=== PATIENT | female | born 1940 | race Caucasian/White ===

== ENCOUNTER 2022-06-11 07:10 | Day surgery (SDC) | payer MEDICARE ==
[2022-06-11] VITALS (22 sets, daily range): BP systolic 124–237; BP diastolic 34–90
[~2022-06-11] VITALS: Ht 152.4 cm; Wt 45.0 kg
[2022-06-11] MEDS ORDERED: normal saline 1000ml 1,000 ML IV PRN (07:35)
[2022-06-11] MEDS ORDERED: AMOX500C42 PO (07:42)
[2022-06-11] MEDS ORDERED: MELO-100 PO (07:42)
[2022-06-11] MEDS ORDERED: HYDR-3964 PO (07:42)
[2022-06-11] MEDS ORDERED: ATOR10TA70 PO (07:42)
[2022-06-11] MEDS ORDERED: GABA-530 PO (07:42)
[2022-06-11] MEDS ORDERED: DOCU-148 PO (07:42)
[2022-06-11] MEDS ORDERED: LACT1CAP65 PO (07:42)
[2022-06-11] MEDS ORDERED: TIZA-189 PO (07:42)
[2022-06-11] MEDS ORDERED: FLUT15.87 NAS (07:42)
[2022-06-11] MEDS ORDERED: ZOLP5TAB8 PO (07:42)
[2022-06-11] MEDS ORDERED: PANT40TA54 PO (07:42)
[2022-06-11] MEDS ORDERED: MSC30T PO (07:42)
[2022-06-11 08:24] LABS: BASOPHILS % (AUTO) 0.6 % (0-1); EOSINOPHILS # (AUTO) 0.3 X10'3 (0-0.9); EOSINOPHILS % (AUTO) 4.1 % (0-6); HEMATOCRIT 29.8 % (35.0-45.0); HEMOGLOBIN 9.3 g/dl (12.0-16.0); LYMPHOCYTES # (AUTO) 1.5 X10'3 (1.1-4.8); LYMPHOCYTES % (AUTO) 23.7 % (21-51); MEAN CORPUSCULAR HEMOGLOBIN 23.7 PG (27.0-31.0); MEAN CORPUSCULAR HGB CONC 31.1 g/dL (33.0-36.5); MEAN CORPUSCULAR VOLUME 76.2 FL (78-98); MEAN PLATELET VOLUME 6.9 FL (7.4-10.4); MONOCYTES # (AUTO) 0.7 X10'3 (0-0.9); MONOCYTES % (AUTO) 11.2 % (2-12); NEUTROPHILS # (AUTO) 3.8 X10'3 (1.8-7.7); NEUTROPHILS % (AUTO) 60.4 % (42-75); PLATELET COUNT 243 X10'3 (140-440); RED CELL DISTRIBUTION WIDTH 26.7 % (11.5-14.5); WHITE BLOOD COUNT 6.3 X10'3 (4.5-11.0)
[2022-06-11] MEDS ORDERED: LIDOcaine 1% 30ml preserv. free vial ONE (09:15)
[2022-06-11] MEDS ORDERED: midazolam 1 mg/ML 2ml injection ONE (09:24)
[2022-06-11] MEDS ORDERED: fentaNYL/PF 50MCG/1 ML 2ML syringe ONE (09:24)
[2022-06-11] MEDS ORDERED: gelatin sponge, absorbable (Gelfoam 12-7MM) sponge TP ONE (09:39)
[2022-06-11] MEDS ORDERED: hydrALAZINE 20mg/ml inj. IV ONE (09:47)
[2022-06-11] MEDS ORDERED: morphine 4 MG/ML inj SYRINge IV PRN (10:25)
[2022-06-11 10:35] LABS: ANISOCYTOSIS 3+; ELLIPTOCYTES 1+; HYPOCHROMASIA 1+; MICROCYTOSIS 1+; PLATELET ESTIMATE NORMAL
[2022-06-11 10:36] LABS: BURR CELLS FEW; SCHISTOCYTES FEW
[2022-06-11] MEDS ORDERED: ondansetron/PF 4mg/2ml inj ONE (12:13)
[2022-06-11] MEDS ORDERED: proCHLORperazine 10 MG/2 ml inj IV ONE (12:50)
--- NOTE | 2022-06-11 12:50 | NUR ---
Pt c/o 9/10 chest pain to anterior medial left chest right above breast. EKG shows sinus tach, Trop came back WNL, pt no longer c/o nausea and vomiting. Called over to radiology to have someone read the CXRs stat, no report yet.
--- NOTE | 2022-06-11 13:50 | NUR ---
Dr Moser at the bedside. States he will look at CXRs
--- NOTE | 2022-06-11 14:00 | NUR ---
Spoke with Dr. Moser and he states he sees a small pnuemo on latest CXR. Ordered one more CXR to see if any worsening.
--- NOTE | 2022-06-11 14:20 | NUR ---
Dr. Moser states the latest CXR shows a small pneumo and no changes. Pt can be discharged but Dr. Moser wants patient to come back tomorrow as an outpatient for one more XRay.
== END 2022-06-11 14:50 | disposition home or self-care (01) ==
LOC: SSTAY O 07:10
PROVIDERS: ATTEND Radiology Vascular & Interventional Radiology
DX: R91.8 Other nonspecific abnormal finding of lung field (principal); C34.92 Malignant neoplasm of unspecified part of left bronchus or lung; Z79.899 Other long term (current) drug therapy; Z79.01 Long term (current) use of anticoagulants; Z87.891 Personal history of nicotine dependence
CPT/HCPCS: 32408; 36415; 71045; 82948; 84484; 85025; 85610; 93005; J0360; J2250; J2405; J3010; J3490; J7030; 77012; 85008; 99152; 99153; A4421; A4615; A6258; C1729; C1769

== ENCOUNTER 2022-06-12 09:22 | Outpatient (CLI) | payer MEDICARE ==
[~2022-06-12 09:22] MED LIST: AMOX500C42 PO; ATOR10TA70 PO; DOCU-148 PO; FLUT15.87 NAS; GABA-530 PO; HYDR-3964 PO; LACT1CAP65 PO; MELO-100 PO; MSC30T PO; PANT40TA54 PO; TIZA-189 PO; ZOLP5TAB8 PO
== END 2022-06-12 23:59 | disposition home or self-care (01) ==
LOC: RAD 09:22
PROVIDERS: ATTEND Radiology Vascular & Interventional Radiology
DX: S22.42XA Multiple fractures of ribs, left side, initial encounter for closed fracture (principal); R91.8 Other nonspecific abnormal finding of lung field; J98.4 Other disorders of lung; J98.2 Interstitial emphysema; X58.XXXA Exposure to other specified factors, initial encounter; Y93.89 Activity, other specified; Y92.89 Other specified places as the place of occurrence of the external cause; Y99.8 Other external cause status
CPT/HCPCS: 71046